=== PATIENT | male | born 1980 | race Caucasian/White ===

== ENCOUNTER 2016-12-08 22:13 | Emergency (ER) | payer OTHER ==
[~2016-12-08] VITALS: Ht 172.7 cm; Wt 88.4 kg
[~2016-12-08 22:13] MED LIST: COLCRYS0.6 MG PO; INDOCIN50 MG PO; LISINOPRIL-HCT1 EAC3 PO; NAPROSYN500 MG PO; NOHOMEMEDS; ULTRAM50 MG PO
[2016-12-09] MEDS ORDERED: TRAMADOL HCL50 MG PO (00:06)
[2016-12-09] MEDS ORDERED: NAPROSYN500 MG PO (00:06)
[2016-12-09 00:18] VITALS: BP 152/100
== END 2016-12-09 00:29 | disposition home or self-care (01) ==
LOC: EME 22:13 → RME 22:13
DX: M10.9 Gout, unspecified (principal)
CPT/HCPCS: 73564; 99281; 99284; J1885